=== PATIENT | male | born 1995 | race Two or more races ===

== ENCOUNTER 2025-08-08 21:52 | Emergency (ER) | payer SELFPAY ==
--- NOTE | ~2025-08-08 | CT_ITS ---
CLINICAL HISTORY: incarcerated hernia evaluation CT abdomen and pelvis with contrast Comparison: None provided Findings: Lung bases clear. No acute bony abnormalities. Liver and spleen within normal limits. Pancreas and adrenal glands unremarkable. Gallbladder is within normal limits. No significant focal renal abnormalities. No renal stones or hydronephrosis. Abdominal aorta is normal in caliber. No free fluid or adenopathy in the pelvis. No diverticulitis. Appendix unremarkable. Impression: No acute process This document has been electronically signed by: Sameer Watt MD on 08/09/2025 00:48:19
[2025-08-08 21:54] VITALS: BP 124/73; PULSE 69; RESP 16; TEMP 36.4; O2SAT 99; BMI 24.0
[2025-08-08 22:16] LABS: MANUAL DIFF FLAG NO
[2025-08-08 22:18] LABS: Hematocrit 39.3 % (42.0-52.0); Hemoglobin 13.2 g/dl (14.0-18.0); Imm Gran Abs Auto 0.05 X10*3/uL (0.00-0.03); Imm Gran Pct Auto 0.4 % (0.0-0.4); Lymphocytes Absolute Auto 4.5 X10*3/uL (1.2-4.9); Mean Corpuscular HGB Conc 33.6 g/dl (31.0-36.0); Mean Corpuscular Hemoglobin 32.8 pg (27.0-33.0); Mean Corpuscular Volume 97.8 fL (80.0-98.0); NRBC Abs Auto 0.000 X10*3/uL (0.0-0.012); NRBC Pct Auto 0.0 /100WBC (0.0-0.2); Platelet Count 177 X10*3/uL (160-400); Red Blood Count 4.02 X10*6/uL (4.60-5.80); White Blood Count 14.2 X10*3/uL (4.8-10.8)
[2025-08-08 22:33] LABS: Alanine Aminotransferase 17 U/L (0-40); Albumin Level 4.5 g/dL (3.5-5.0); Alkaline Phosphatase 56 U/L (39-117); Anion Gap 10 (12-20); Aspartate Amino Transferase 23 U/L (5-37); Blood Urea Nitrogen 17 mg/dL (9-16); Calcium 8.8 mg/dL (8.4-10.2); Carbon Dioxide 30 mmol/L (22-29); Chloride 105 mmol/L (96-108); Creatinine Clr Calc Pharmacy 123.2; Estimated Glomerular Filt Rate > 60; Lipase 20 U/L (8-78); Potassium 4.0 mmol/L (3.3-5.1); Sodium 141 mmol/L (135-145); Total Protein 6.7 g/dL (6.5-8.0)
--- OUTSIDE RECORDS SUMMARY | 2025-08-08 22:46 | XMS_ITS | Clinical Summary ---
Author Organization [facility] Address [address] [place] [address] Care Team Providers Care Research Nurse Practitioner Name Role Phone Unavailable Primary Care Provider Unavailabl e Medications Medication Sig Dispensed Refills Start Date End Date Status methocarbamol (ROBAXIN) 500 MG tablet Take 1 tablet (500 mg total) by mouth 3 (three) times a day. 21 tablet 0 04/21/2024 Active Social History Tobacco Use Types Packs/Day Years Used Date Smoking Tobacco: Never Assessed Sex and Gender Information Value Date Recorded Sex Assigned at Male 04/21/2024 6:03 PM EDT Gender Identity Not on file Sexual Orientation Not on file Job Start Date Occupation Industry Not on file Not on file Not on file Last Filed Vital Signs Vital Sign Reading Time Taken Comments Blood Pressure 130/78 04/21/2024 5:39 PM EDT Pulse 70 04/21/2024 5:39 PM EDT Temperature 35.8 C (96.4 F) 04/21/2024 5:39 PM EDT Respiratory Rate 16 04/21/2024 5:39 PM EDT Oxygen Saturation 100% 04/21/2024 5:39 PM EDT Inhaled Oxygen Concentration - - Weight - - Height - - Body Mass Index - - Plan of Treatment Health Maintenance Due Date Last Done Comments Hepatitis B Vaccines (1 of 3 - 3-dose series) 1994 Hepatitis C Screening 1994 COVID-19 Vaccine (#1) 1994 Depression Screening 2006 Preventative Health Evaluation 2012 DTap / Tdap / Td (1 - Tdap) 2013 Influenza Vaccine (#1) 2025 Pneumococcal Vaccine Aged Out No long er eligible based on patient's age to complete this topic RSV Ped < 20 months Aged Out No longe r eligible based on patient's age to complete this topic
--- OUTSIDE RECORDS SUMMARY | 2025-08-08 22:46 | XMS_ITS | Clinical Summary ---
Author Organization [facility] Address [address] [place] [address] Care Team Providers Care Installation Supervisor Name Role Phone Unavailable Primary Care Provider Unavailabl e Social History Tobacco Use Types Packs/Day Years Used Date Smoking Tobacco: Never Assessed Sex and Gender Information Value Date Recorded Sex Assigned at Not on file Legal Sex Male 4:54 PM EDT Gender Identity Not on file Sexual Orientation Not on file Obstetrics History Plan of Treatment Health Maintenance Due Date Last Done Comments DTaP,Tdap,and Td Vaccines (1 - Tdap) 2013 Hepatitis B Vaccines (1 of 3 - 19+ 3-dose series) 2013 HIV Screening 06/22/2024 Hepatitis C Screening 06/22/2024 Social Influencers of Health Screening 06/22/2024 Depression Screening 11/23/2024 COVID-19 Vaccine (2023-2 5 season) 2025 Influenza Vaccine (#1) 2025 HIB Vaccines Aged Out No longer eligi ble based on patient's age to complete this topic HPV Vaccines Aged Out No longer eligi ble based on patient's age to complete this topic Hepatitis A Vaccines Aged Out No long er eligible based on patient's age to complete this topic IPV Vaccines Aged Out No longer eligi ble based on patient's age to complete this topic MMR Vaccines Aged Out No longer eligi ble based on patient's age to complete this topic Meningococcal ACWY Vaccine Aged Out N o longer eligible based on patient's age to complete this topic Meningococcal B Vaccine Aged Out No l onger eligible based on patient's age to complete this topic Pneumococcal Vaccine: Pediat rics (0 to 5 Years) and At-Risk Patients (6 to 49 Years) Aged Out No longer eligible b ased on patient's age to complete this topic RSV Immunization Patients Un michelle 20 months Aged Out No longer eligible b ased on patient's age to complete this topic Varicella Vaccines Aged Out No longer eligible based on patient's age to complete this topic
[2025-08-08 22:47] VITALS: BP 105/70; PULSE 64; RESP 16; TEMP 36.3; O2SAT 97
--- NOTE | 2025-08-08 22:50 | ED_ITS ---
[facility] - General Adult General Chief complaint: Abdominal Pain Stated complaint: Hernia Time Seen by Provider: 08/08/25 22:46 Source: patient Mode of arrival: ambulatory Limitations: no limitations History of Present Illness ED Provider: Dr. Robins [facility] narrative: This is a 30-year-old male presented hospital today for a left groin pain. Patient stated that this has been going for 3 days now. He stated this pain has been progressively getting more severe this morning. Patient is complaining of some nausea while associated with this pain. It is not follow up with a surgery clinic for evaluation of this left hernia. Patient stated that is located in his left groin area. Related Data Allergies Allergy/AdvReac Type Severity Reaction Status Date / Time No Known Allergies Allergy Verified 08/08/25 21:56 Review of Systems 2 Review of Systems: Pertinent review of systems as mentioned in HPI. All other system otherwise negative. [facility] Past Medical History [facility] Narrative: Medical history as mentioned in [facility] Social History Social History Substance Use Type: Marijuana Physical Exam ED Exam Exam: General: Pleasant, no distress, interacting appropriately Head: Normacephalic, atraumatic ENT: oral mucosa moist, neck supple, no tracheal deviation Cardiovascular: regular rate, regular rhythm, no murmurs, rubbing, gallops Respiratory: CTAB, no wheeze, rales, rhonchi Gastrointestinal: Soft, non distended, left lower quadrant tenderness on palpation : Does Not have any signs of incarcerated hernia on the inguinal canal on exam. Neurological: Awake and alert, no facial droop noted Skin: Warm and dry Psychiatric: Appropriate mood and thoughts Vital Signs: Vital Signs - 24 hr 08/08/25 21:54 08/08/25 22:47 08/09/25 01:38 Temperature 97.5 F 97.3 F 98.4 F Pulse Rate 69 64 57 Respiratory Rate 16 16 16 Blood Pressure 124/73 105/70 100/62 Pulse Oximetry 99 97 97 Oxygen Delivery Method Room Air Room Air Room Air 08/09/25 02:12 Temperature 98.4 F Pulse Rate 57 Respiratory Rate 16 Blood Pressure 100/62 Pulse Oximetry 97 Oxygen Delivery Method Room Air BMI result Body Mass Index 24.0 Medications Administered Discontinued Medications Generic Name Dose Route Start Last Admin Trade Name Freq PRN Reason Stop Dose Admin Sodium Chloride 1,000 mls @ 999 mls/hr 08/08/25 23:00 08/09/25 00:14 Ns IV 08/09/25 00:00 Infused .Q1H1M HAN Infusion Iohexol 85 ml 08/08/25 23:49 08/08/25 23:49 Iohexol 350 Mg/Ml 100 Ml Infus..Btl IV 08/08/25 23:50 85 ml ONCE ONE Administration Ketorolac Tromethamine 15 mg 08/08/25 23:00 08/08/25 23:17 Ketorolac Tromethamine 15 Mg/Ml Vial IVPUSH 08/08/25 23:01 15 mg ONCE ONE Administration Medical Decision Making Medical Decision Making [facility] Narrative: This is a 30-year-old male history of suspected left groin hernia presented hospital today for evaluation of left lower abdominal pain. And nausea and vomiting Abdominal lab work will be obtained. We will obtain a CT abdomen and pelvis with IV contrast as well. We will plan to give patient some IV Toradol and IV fluid. I do not suspect strangulated hernia on exam. Does not appear to be incarcerated as well. However patient does have white count on his lab work. And does have left lower quadrant pain. No sign of incarcerated hernia on CT imaging. Patient will be discharged at this time. Referral to General surgery Clinic will be provided the patient. Return precautions provided. Patient agrees and understands this plan. Differential Diagnosis Differential Diagnoses: The differential diagnosis associated with the presentation includes Strangulated hernia, incarcerated hernia, inguinal hernia, UTI Lab Data [facility] Lab Attestation statement: I reviewed the patient's lab results. 08/08/25 22:12 08/08/25 22:12 Labs: Lab Results 08/08/25 08/08/25 Range/Units 22:12 23:00 WBC 14.2 H (4.8-10.8) X10*3/uL RBC 4.02 L (4.60-5.80) X10*6/uL Hgb 13.2 L (14.0-18.0) g/dl Hct 39.3 L (42.0-52.0) % MCV 97.8 (80.0-98.0) fL MCH 32.8 (27.0-33.0) pg MCHC 33.6 (31.0-36.0) g/dl RDW 11.5 (11.0-16.0) % Plt Count 177 (160-400) X10*3/uL MPV 10.2 (9.4-12.4) fL Immature Gran % (Auto) 0.4 (0.0-0.4) % Neut % (Auto) 57.5 (45-73) % Lymph % (Auto) 31.9 (20-40) % [place] % (Auto) 9.0 (2-11) % Eos % (Auto) 0.9 (0-4) % Baso % (Auto) 0.3 (0-2) % Lymph # (Auto) 4.5 (1.2-4.9) X10*3/uL [place] # (Auto) 1.3 H (0.1-1.2) X10*3/uL Eos # (Auto) 0.1 (0.0-0.4) X10*3/uL Baso # (Auto) 0.0 (0.0-0.2) X10*3/uL Abs Immat Gran (auto) 0.05 H (0.00-0.03) X10*3/uL Absolute Neuts (auto) 8.2 (2.0-8.3) x10*3/uL Absolute Nucleated RBC 0.000 (0.0-0.012) X10*3/uL Nucleated RBC % (auto) 0.0 (0.0-0.2) /100WBC Sodium 141 (135-145) mmol/L Potassium 4.0 (3.3-5.1) mmol/L Chloride 105 (96-108) mmol/L Carbon Dioxide 30 H (22-29) mmol/L Anion Gap 10 L (12-20) BUN 17 H (9-16) mg/dL Creatinine 1.01 (0.5-1.4) mg/dL Estim Creat Clear Calc 123.2 Estimated GFR > 60 Random Glucose 98 (60-115) mg/dL Calcium 8.8 (8.4-10.2) mg/dL Total Bilirubin 0.6 (0.0-1.0) mg/dL Direct Bilirubin 0.2 (0.0-0.5) mg/dL AST 23 (5-37) U/L ALT 17 (0-40) U/L Alkaline Phosphatase 56 (39-117) U/L Total Protein 6.7 (6.5-8.0) g/dL Albumin 4.5 (3.5-5.0) g/dL Lipase 20 (8-78) U/L Urine Color Yellow Urine Appearance Clear Urine pH 6.0 (5.0-9.0) Ur Specific [place] >= 1.030 H (1.005-1.025) Urine Protein Negative (Neg-Trace) mg/dL Urine Glucose (UA) Negative (Negative) mg/dL Urine Ketones Trace (Negative) mg/dL Urine Blood Negative (Negative) Urine Nitrite Negative (Negative) Ur Leukocyte Esterase Negative (Negative) Independent Interpretation I performed an independent interpretation of an: CT Scan Radiology Impression Discussion of test interpretation with radiology: I have reviewed the radiologist's reading. Discharge Plan Discharge Clinical Impression: Hernia Abdominal pain Qualifiers: Abdominal location: unspecified location Qualified Code(s): R10.9 - Unspecified abdominal pain Patient Disposition: Home, Self-Care Ref[place]: [facility] [place] [facility] [Provider Group, General Surgery] Interventions: ED Discharge Assessment Last Done: 08/09/25 02:12 Discharge Date/Time: 08/09/25 02:13 Print Language: Angolan
[2025-08-08 23:07] LABS: Appearance Urine Clear; Glucose Urine UA Negative (Negative); PH 6.0 (5.0-9.0); Specific Gravity - Urine >= 1.030 (1.005-1.025)
[2025-08-08] MEDS: iohexoL 350 MG/ML 100 ML INFUS..BTL 85 ML IV (23:49)
[2025-08-09 01:38] VITALS: BP 100/62; PULSE 57; RESP 16; TEMP 36.9; O2SAT 97
[2025-08-09 02:12] VITALS: BP 100/62; PULSE 57; RESP 16; TEMP 36.9; O2SAT 97
== END 2025-08-09 02:13 | disposition home or self-care (01) ==
PROVIDERS: Emergency Provider Student in an Organized Health Care Education/Training Program
DX: K46.0 Unspecified abdominal hernia with obstruction, without gangrene (principal); R10.32 Left lower quadrant pain; R11.2 Nausea with vomiting, unspecified
CPT/HCPCS: 36415; 74177; 80048; 80076; 81003; 83690; 85025; 96361; 96374; 99284; J1885; Q9967

== ENCOUNTER → 2025-08-08 23:01 | Outpatient (BNV) | payer SELFPAY | PROVIDERS: Emergency Provider Student in an Organized Health Care Education/Training Program; Visit Provider Radiology Diagnostic Radiology | DX: R10.32 Left lower quadrant pain (principal) | CPT/HCPCS: 74177 ==